=== PATIENT | female | born 1990 | race African-American/Black ===

== ENCOUNTER 2023-09-29 07:27 | Emergency (ER) | payer OTHER ==
[~2023-09-29] VITALS: Ht 177.8 cm; Wt 81.1 kg
[2023-09-29] MEDS ORDERED: VITATAB47 PO (07:35)
[2023-09-29] MEDS ORDERED: MELO15TA28 PO (07:35)
[2023-09-29 08:26] LABS: BASO % 0.6 % (0.0-1.0); EOS # 0.1 10^3/uL (0.0-0.5); EOS % 1.2 % (0.0-3.0); HEMATOCRIT 39.2 % (36.0-47.0); HEMOGLOBIN 12.8 g/dl (12.0-15.5); LYMPH # 1.9 10^3/uL (1.5-5.0); LYMPH % 37.1 % (24.0-44.0); MEAN CORPUSCULAR HEMOGLOBIN 28.8 pg (27.0-33.0); MEAN CORPUSCULAR HGB CONC 32.7 g/dl (32.0-36.5); MEAN CORPUSCULAR VOLUME 88.3 fl (80.0-96.0); MONO # 0.5 10^3/uL (0.0-0.8); MONO % 9.8 % (2.0-8.0); NEUTROPHILS # 2.6 10^3/uL (1.5-8.5); NEUTROPHILS % 51.1 % (36.0-66.0); PLATELET COUNT, AUTOMATED 181 10^3/uL (150-450); RED BLOOD COUNT 4.44 10^6/uL (4.00-5.40); WHITE BLOOD COUNT 5.1 10^3/uL (4.0-10.0)
[2023-09-29 08:38] LABS: URINE PREG TEST NEGATIVE (NEGATIVE)
[2023-09-29 08:45] LABS: INR 1.1; PARTIAL THROMBOPLASTIN TIME 25.8 SECONDS (24.8-34.2); PROTHROMBIN TIME 13.9 SECONDS (12.5-14.5)
[2023-09-29 08:48] LABS: LIPASE 31 U/L (12-53)
[2023-09-29 08:49] LABS: AMYLASE 99 U/L (30-118)
[2023-09-29 08:50] LABS: ALBUMIN 3.4 G/DL (3.2-5.2); ALKALINE PHOSPHATASE 51 U/L (46-116); ALT/SGPT 31 U/L (7.0-40); AST/SGOT 14 U/L (<34); BILIRUBIN,DIRECT 0.1 MG/DL (<0.4); BILIRUBIN,TOTAL 0.4 MG/DL (0.3-1.2); BLOOD UREA NITROGEN 9 MG/DL (9-23); CALCIUM LEVEL 9.1 MG/DL (8.5-10.1); CARBON DIOXIDE LEVEL 28 MMOL/L (20-31); CHLORIDE LEVEL 108 MMOL/L (98-107); CREATININE FOR GFR 0.83 MG/DL (0.55-1.30); GLOMERULAR FILTRATION RATE > 60.0 (>60); GLUCOSE, FASTING 97 MG/DL (60-100); POTASSIUM SERUM 4.7 MMOL/L (3.5-5.1); SODIUM LEVEL 139 MMOL/L (136-145); TOTAL PROTEIN 6.9 G/DL (5.7-8.2)
[2023-09-29] MEDS: NS 1,000 ML IV ONE (08:52)
[2023-09-29] MEDS: KETOROLAC 30 MG/ML 1ML VIAL IV ONE (08:52)
[2023-09-29 11:46] VITALS: BP 115/67; TEMP 97.6; O2SAT 100
[2023-09-29] MEDS ORDERED: COLA100C5 PO (12:08)
[2023-09-29] MEDS: MAGNESIUM CITRATE 300ML BTL PO ONE (12:13)
== END 2023-09-29 12:19 | disposition home or self-care (01) ==
LOC: M ED 07:27
DX: K59.00 Constipation, unspecified (principal); N28.1 Cyst of kidney, acquired; R19.00 Intra-abdominal and pelvic swelling, mass and lump, unspecified site; Z91.013 Allergy to seafood; Z79.899 Other long term (current) drug therapy; Z87.42 Personal history of other diseases of the female genital tract
CPT/HCPCS: 74018; 76775; 76830; 76856; 80048; 80076; 81001; 82150; 83690; 84702; 84703; 85025; 85610; 85730; 93976; 96361; 96374; 99284; J1885

== ENCOUNTER → 2023-10-11 | Outpatient (CLI) | payer OTHER ==
[~2023-10-11] MED LIST: COLA100C5 PO; MELO15TA28 PO; VITATAB47 PO
[2023-10-11 18:03] LABS: HEMOGLOBIN A1c 5.2 % (4.0-6.0)
[2023-10-11 18:08] LABS: RHEUMATOID FACTOR QUANT < 3.5 IU/ML (<14); THYROXINE (T4) 6.1 UG/DL (4.5-10.9)
[2023-10-11 18:09] LABS: FOLATE 13.4 NG/ML (>5.4); VITAMIN B12 LEVEL 1028 PG/ML (211-911)
[2023-10-11 18:11] LABS: FREE THYROXINE INDEX 2.7 % (1.3-4.8); T UPTAKE 44.4 % (22.5-37.0)
== END ==
LOC: M PLALAB 15:23
PROVIDERS: ATTEND Psychiatry & Neurology Neurology
DX: R51.9 Headache, unspecified (principal); M54.50 Low back pain, unspecified; M54.2 Cervicalgia

== ENCOUNTER 2024-07-16 10:43 | Inpatient (IN) | payer OTHER ==
[~2024-07-16] VITALS: Ht 172.7 cm; Wt 79.0 kg
[2024-07-16 11:46] LABS: MEAN CORPUSCULAR HEMOGLOBIN 28.4 pg (27.0-33.0); MEAN CORPUSCULAR HGB CONC 32.4 g/dl (32.0-36.5); MEAN CORPUSCULAR VOLUME 87.5 fl (80.0-96.0); PLATELET COUNT, AUTOMATED 221 10^3/uL (150-450); RED BLOOD COUNT 4.23 10^6/uL (4.00-5.40); WHITE BLOOD COUNT 5.9 10^3/uL (4.0-10.0)
[2024-07-16 12:12] LABS: AMPHETAMINES LEVEL URINE NEGATIVE (NEGATIVE); BARBITURATES URINE NEGATIVE (NEGATIVE); BENZODIAZEPINES URINE NEGATIVE (NEGATIVE); COCAINE METABOLITE URINE NEGATIVE (NEGATIVE)
[2024-07-16 12:13] LABS: CANNABINOIDS URINE NEGATIVE (NEGATIVE); METHADONE URINE NEGATIVE (NEGATIVE); OPIATES URINE NEGATIVE (NEGATIVE); PHENCYCLIDINE URINE NEGATIVE (NEGATIVE)
[2024-07-16 12:15] LABS: ETHYL ALCOHOL (ETHANOL) 0.005 % (0.000-0.010)
[2024-07-16 12:16] LABS: ALBUMIN 3.6 G/DL (3.2-5.2); ALKALINE PHOSPHATASE 56 U/L (35-104); ALT/SGPT 21 U/L (7.0-40); AST/SGOT 14 U/L (<34); BILIRUBIN,DIRECT 0.1 MG/DL (<0.4); BILIRUBIN,TOTAL 0.3 MG/DL (0.3-1.2); BLOOD UREA NITROGEN 7 MG/DL (9-23); CALCIUM LEVEL 9.2 MG/DL (8.5-10.1); CARBON DIOXIDE LEVEL 28 MMOL/L (20-31); CHLORIDE LEVEL 107 MMOL/L (98-107); CREATININE FOR GFR 0.74 MG/DL (0.55-1.30); GLOMERULAR FILTRATION RATE > 60.0 (>60); GLUCOSE, FASTING 81 MG/DL (60-100); POTASSIUM SERUM 3.9 MMOL/L (3.5-5.1); SALICYLATE LEVEL < 3.0 MG/DL (<30); SODIUM LEVEL 141 MMOL/L (136-145); TOTAL PROTEIN 7.2 G/DL (5.7-8.2)
[2024-07-16 12:18] LABS: THYROID STIMULATING HORMONE 0.882 uIU/ML (0.55-4.78)
[2024-07-16] MEDS ORDERED: SILE3TAB3 PO (13:48)
[2024-07-16] MEDS ORDERED: VITA100066 PO (13:48)
[2024-07-16] MEDS ORDERED: REFR0.5D8 OU (13:48)
[2024-07-16] MEDS ORDERED: MULTTAB61 PO (13:48)
[2024-07-16] MEDS ORDERED: VENL75CA47 PO (13:48)
[2024-07-16] MEDS ORDERED: FINA0.05 TOP (13:48)
[2024-07-16] MEDS ORDERED: RIZA10TA66 PO (13:48)
[2024-07-16] MEDS ORDERED: DOCU100C16 PO (13:48)
[2024-07-16] MEDS ORDERED: CARB-115 PO (13:48)
[2024-07-16] MEDS ORDERED: HOME MED LIST COMPLETE! XX SCH (13:50)
[2024-07-16] MEDS ORDERED: traZODone 50 MG TAB PO PRN (22:05)
[2024-07-16] MEDS ORDERED: ACETAMINOPHEN 325 MG TAB PO PRN (22:05)
[2024-07-16] MEDS ORDERED: RIZATRIPTAN MLT 10 MG TAB PO PRN (22:05)
[2024-07-16] MEDS ORDERED: diphenhydrAMINE 25MG CAP PO PRN (22:05)
[2024-07-16] MEDS ORDERED: MAALOX 30 ML SUSP *UDC PO PRN (22:05)
[2024-07-16 22:11] VITALS: BP 119/69; TEMP 97.9; O2SAT 98
[2024-07-16] MEDS: MOM 30ML SUSPENSION UDC PO PRN (22:29)
[2024-07-16] MEDS: VENLAFAXINE **XR** 75MG CAPSULE PO SCH (22:29)
[2024-07-16] MEDS: carBAMazepine XR 200 MG TAB PO SCH (22:42)
[2024-07-17 06:55] VITALS: BP 135/63; TEMP 98; O2SAT 99
[2024-07-17] MEDS: MELOXICAM (MOBIC) 7.5 MG TAB PO SCH (09:55)
[2024-07-17 16:15] VITALS: BP 126/62; TEMP 97.5; O2SAT 100
[2024-07-17] MEDS: MIRTAZAPINE 15 MG TAB PO SCH (20:30)
[2024-07-18 06:12] VITALS: BP 117/69; TEMP 98.1; O2SAT 100
[2024-07-18] MEDS ORDERED: DOCUSATE SODIUM 100MG CAPSULE PO PRN (08:50)
[2024-07-18 08:52] LABS: URINE PREG TEST NEGATIVE (NEGATIVE)
[2024-07-18] MEDS ORDERED: VITAMIN D 1,000 INTERNATIONAL UNITS TABLET PO SCH (09:00)
[2024-07-18] MEDS: GLYCERIN ADULT SUPP PR PRN (11:07)
[2024-07-18] MEDS: VITAMIN D 1,000 INTERNATIONAL UNITS TABLET PO SCH (11:07)
[2024-07-18 15:46] VITALS: BP 125/63; TEMP 98.4; O2SAT 100
[2024-07-18] MEDS: QUEtiapine FUMARATE 50MG TAB PO SCH (20:06)
[2024-07-19 06:53] VITALS: BP 111/54; TEMP 97.6; O2SAT 100
[2024-07-19] MEDS: VENLAFAXINE **XR** 75MG CAPSULE PO SCH (08:16)
[2024-07-19] MEDS: VENLAFAXINE **XR** 37.5 MG CAPSULE PO SCH (08:16)
[2024-07-19] MEDS ORDERED: VITAMIN D 1,000 INTERNATIONAL UNITS TABLET PO SCH (09:00)
[2024-07-19 15:08] VITALS: BP 132/63; TEMP 98.2; O2SAT 100
[2024-07-19] MEDS: IBUPROFEN 400MG TAB PO PRN (20:37)
[2024-07-20 06:30] VITALS: BP 117/55; TEMP 97.9; O2SAT 100
[2024-07-20] MEDS ORDERED: QUET50TA4 PO (09:16)
[2024-07-20] MEDS ORDERED: VENL75CA47 PO (09:16)
[2024-07-20] MEDS ORDERED: VENL37.598 PO (09:16)
[2024-07-20] MEDS ORDERED: VITAD1000T PO (09:16)
== END 2024-07-20 10:05 | disposition home or self-care (01) | DRG 881 ==
LOC: EDBD 10:43 → M ED 10:43 → M ED INP 19:08 → M PSY 21:10
PROVIDERS: ADMIT Psychiatry & Neurology Psychiatry; ATTEND Psychiatry & Neurology Psychiatry
DX: F32.A Depression, unspecified (principal); R45.851 Suicidal ideations; F32.9 Major depressive disorder, single episode, unspecified; F43.10 Post-traumatic stress disorder, unspecified; Z91.013 Allergy to seafood; F41.1 Generalized anxiety disorder; Z79.899 Other long term (current) drug therapy; G50.0 Trigeminal neuralgia